=== PATIENT | female | born 1995 | race Caucasian/White ===

== ENCOUNTER 2023-10-14 09:37 | Inpatient (IN) | payer SELFPAY ==
[2023-10-14] VITALS (12 sets, daily range): BP systolic 83–130; BP diastolic 54–87; PULSE 55–95; RESP 16–18; TEMP 36.1–36.7; O2SAT 95–98; BMI 43.6
[2023-10-14] MEDS: Lactated Ringers 1,000 ML 999 ML IV ×2 (10:15→13:30)
[2023-10-14 10:30] LABS: Absolute Lymphocyte Count 1.28 X10^3/uL (0.83-4.51); Absolute Neutrophil Count 5.9 X10^3/uL (2.0-7.7); Basophil# 0.05 X10^3/uL; Basophil% 0.6 % (0-1); Eosinophil# 0.11 X10^3/uL; Eosinophils% 1.4 % (0-5); Hemoglobin 11.5 g/dL (12.0-15.0); Lymphocyte # 1.28 X10^3/ul (0.83-4.51); Lymphocyte % 16.1 % (19-41); Mean Corp Hgb Conc 32.9 g/dL (32-36); Mean Corpuscular Hgb 29.5 pg (27.0-32.0); Mean Corpuscular Volume 89.7 fL (81-99); Mean Platelet Vol. 11.8 fl (6.2-12.0); Monocyte# 0.64 X10^3/uL; NRBC Flagged by Analyzer 0 % (0-5); Neutrophil # 5.86 X10^3/uL (2.7-7.7); Neutrophil % 73.5 % (47-70); Platelet Count 226 K/mm3 (150-450); RBC Distribution Width CV 13.1 % (11.6-14.6); RBC Distribution Width SD 42.5 fl (35.1-43.9)
[2023-10-14] MEDS: Acetaminophen 500 MG Tablet 1000 MG PO ×2 (10:30→18:39)
[2023-10-14] MEDS: Sodium Citrate/Citric Acid 30 ML UDC PO (10:37)
[2023-10-14 11:04] LABS: Syphilis Antibodies Non-reactive
[2023-10-14] MEDS: Lactated Ringers 1,000 ML 150 ML IV (11:41)
[2023-10-14] MEDS: Cefazolin 3 GM in 0.9% Normal Saline (100mL Bag) 100 ML IV (11:55)
--- NOTE | 2023-10-14 12:10 | PCM.HP.OB ---
HPI - General General Date of Admission: 10/14/23 Date of Service: 10/14/23 HPI Narrative MINI BENDER, is a 28 F who presents for repeat . Maternal Data Information Final ARACELY: 10/21/23 Gestational age: 39 weeks PFSH PFSH Medical History no medical history Home Medications ?Medication ?Instructions ?Recorded ?Last Taken ?Type NK 10/14/23 Unknown History Allergy/AdvReac Type Severity Reaction Status Date / Time No Known Allergies Allergy Verified 10/14/23 09:38 Family History no significant family his Surgical History Previous section Social History Smoking Status: Never smoker History Elective abortions Hx Para 3 Spontaneous abortions Hx # Term Pregnancies Ectopic pregnancies Hx # Pregnancies Multiple births # of living children Vital Signs Vital Signs Vital Signs: 10/14/23 10:45 Temperature 97.0 F L Temperature Source Temporal Pulse Rate 95 Respiratory Rate 16 Blood Pressure 130/84 H Blood Pressure Mean 99 Blood Pressure Source Monitor Blood Pressure Position Semi-Fowlers Blood Pressure Location Right Arm Pulse Ox 97 Oxygen Delivery Method Room Air Weight Weight: 287 lb Body Mass Index (BMI) 43.6 Physical Exam Const alert and oriented x3 Chest inspection of chest normal GI soft to palpation, non-tender and non-distended Inspection: gravid Labs Labs Labs: Blood Type O POSITIVE Antibody Screen NEGATIVE Hct 35.0 % (37-47) L Hgb 11.5 g/dL (12.0-15.0) L Syphilis Total Ab Non-reactive Assessment & Plan (1) Previous section: PLAN: Plan Admit to L&D MOD - proceed with repeat . R/B/A reviewed and informed consent signed. Routine care
--- NOTE | 2023-10-14 12:57 | EX.PCM.OBRPT ---
Maternal Data Information Final ARACELY: 10/21/23 Gestational age: 39 weeks Details Operative Information Date of Procedure: 10/14/23 Pre-Operative Diagnosis: (1) Prior section Post-Operative Diagnosis: Same Indications for : Repeat Elective Indications Narrative: The patient was taken to the operating room where spinal anesthesia was placed & found to be adequate. She was prepped and draped in the dorsal supine position with a leftward tilt. A Pfannenstiel skin incision was made approximately 2 cm above the symphysis pubis and carried through to the underlying fascia with the scalpel. The fascia was incised incised in the midline and extended laterally with the Nelson scissors. The rectus muscles were scarred o the underlying peritoneum. The rectus muscles were carefully incised using the bovie and then blunt dissection. Rectus muscle edges were cauterized for excellent hemostasis. The peritoneal incision was stretched and the bladder blade was inserted. Vesicouterine peritoneum was tented up, incised & then bladder flap created gently. The uterine incision was made in a low transverse fashion with the scalpel and extended superiorly and inferiorly with blunt dissection. The infant's head was brought to the incision in the flexed position and delivered without difficulty. The head was gently guided to allow delivery of the anterior and posterior shoulders. The body then delivered with fundal pressure in the standard fashion. The 3VC cord was clamped and cut in delayed fashion. The infant was handed off to the waiting behavioral pediatrician. The placenta was delivered with fundal massage and gentle traction in the standard fashion. The uterus was exteriorized and cleared of clots and debris. The uterine incision was closed with #1 Vicryl suture in a running locked fashion. Monocryl suture was used in an imbricating fashion. The incision was examined and was found to be hemostatic. The uterus was returned to the abdominal cavity. After irrigating Liza was placed over the uterine incision as some areas were denuded (but hemostatic). The rectus muscle was examined and any bleeding was Bovie cauterized. The fascia was closed with PDS suture in a running standard fashion. The subcutaneous tissue was examining and any bleeding was Bovie cauterized. The subcutaneous tissue was reapproximated with interrupted sutures. The skin was closed in a subcuticular fashion by the PORTFOLIO ARCHITECT while I was present in the labor & delivery unit. The remainder of the procedure was performed by me with assistance. All sponge, lap, and needle counts were correct. The patient was taken to her room for recovery in a stable condition. Classification: Scheduled Procedure Type: low transverse commercial housekeeper #1: Lizz Grey Type of Anesthesia: Spinal Antibiotic Given: Ancef 3 grams IV x1 Drain: Sousa to straight drain Estimated Blood Loss: 700ml Fluids Replaced: 1000ml Procedure Start Time: 12:24 Procedure Stop Time: 13:09 Findings Description of Procedure: Normal maternal uterus and adnexa Presentation: Positive for Vertex Amniotic Membrane Rupture Type: Artificial Amniotic Fluid Description: Clear Placenta Disposition: [facility] Cord Vessel Description: 3 Vessels Cord Entanglement: None Infant A Gender: Male (weight = 8-14) (1 minute): 8 (5 minute): 9 Delayed Cord Clamping: Yes Complications Complications: none
--- NOTE | 2023-10-14 13:28 | NURSING ---
fluid bolus initiated for hypotension. Pt asymptomatic
[2023-10-14] MEDS: Oxytocin 15 Units/NS 250ml 15 UNITS/250 ML IV.SOLN 83 UNITS IV (13:30)
[2023-10-14] MEDS: Ketorolac 30 MG/ML Syringe IV ×2 (14:14→20:10)
[2023-10-14] MEDS: HYDROmorphone 1 MG/ML Syringe IV (14:19)
[2023-10-14] MEDS: 0.9% Saline Lock 10 ML Syringe IV (20:10)
[2023-10-15] MEDS: Acetaminophen 500 MG Tablet 1000 MG PO ×3 (00:16→11:05)
[2023-10-15] MEDS: Enoxaparin 40 MG/0.4 ML Syringe SC ×2 (00:16→13:53)
[2023-10-15 00:18] VITALS: BP 114/74; PULSE 69; RESP 16; TEMP 36.4; O2SAT 96
[2023-10-15] MEDS: 0.9% Saline Lock 10 ML Syringe IV ×3 (02:21→07:51)
[2023-10-15] MEDS: Ketorolac 30 MG/ML Syringe IV ×2 (02:21→07:51)
[2023-10-15 04:00] VITALS: BP 122/69; PULSE 72; RESP 16; TEMP 36.2; O2SAT 95
[2023-10-15 06:16] LABS: Hematocrit 31.6 % (37-47); Hemoglobin 10.2 g/dL (12.0-15.0); Mean Corp Hgb Conc 32.3 g/dL (32-36); Mean Corpuscular Volume 89.8 fL (81-99); Mean Platelet Vol. 11.5 fl (6.2-12.0); Platelet Count 191 K/mm3 (150-450); RBC Distribution Width SD 41.8 fl (35.1-43.9); Red Blood Count 3.52 M/mm3 (4.2-5.4); White Blood Count 11.7 K/mm3 (4.4-11.0)
[2023-10-15 09:01] VITALS: BP 120/73; PULSE 55; RESP 16; TEMP 36.1; O2SAT 99
[2023-10-15] MEDS: Senna/Docusate Sodium 1 Tablet PO (11:05)
--- NOTE | 2023-10-15 11:26 | PCM.PN.OB ---
Subjective Subjective Denies complaints Objective Data Objective Data Vital Signs: Vital Signs Temp Pulse Resp BP Pulse Ox O2 Del Method 97 F L 55 L 16 120/73 99 Room Air 10/15/23 09:01 10/15/23 09:01 10/15/23 09:01 10/15/23 09:01 10/15/23 09:01 10/15/23 09:01 Oxygen Delivery Method Room Air Weight: 287 lb Body Mass Index (BMI) 43.6 Intake & Output: Intake and Output for Last 24 Hours 10/13/23 10/14/23 10/15/23 23:59 23:59 23:59 Intake Total 3043.67 / 3043.67 Output Total 1500 / 1500 400 / 400 Balance 1543.67 / 1543.67 -400 / -400 Lab / Micro Data 10/15/23 06:08 Labs: Laboratory Results - last 24 hr 10/14/23 10:15: Blood Type O POSITIVE, Antibody Screen NEGATIVE 10/15/23 06:08: WBC 11.7 H, RBC 3.52 L, Hgb 10.2 L, Hct 31.6 L, MCV 89.8, MCH 29.0, MCHC 32.3, RDW Std Deviation 41.8, RDW Coeff of Michael 13.0, Plt Count 191, MPV 11.5 Physical Exam Const alert, oriented x3 and no apparent distress HEENT normocephalic GI soft to palpation, non-tender and non-distended GI Narrative: fundus firm, mid & below umbilicus Incision - bandage c/d/i Extremity normal to inspection and no calf tenderness Assessment & Plan (1) Previous section: COMMENT: POD#1 PLAN: Heme - HDS, CBC reviewed /GI - no issues D/c home per patient request
--- NOTE | 2023-10-15 11:27 | PCM.DC.SUM ---
Providers Date of Admission: 10/14/23 Primary Care Physician: Dr. Antoine Olmstead MD Reason For Visit: REPEAT Diagnosis Discharge Diagnosis (1) Previous section: Status: Acute Code(s): Z98.891 - History of uterine scar from previous surgery Plan: Heme - HDS, CBC reviewed /GI - no issues D/c home per patient request Medications at Discharge Home Medications acetaminophen 500 mg tablet 1,000 mg (2 x 500 mg) PO Q6H #0 tabs 10/15/23 ibuprofen 600 mg tablet 600 mg PO Q6H #0 tabs 10/15/23 oxycodone 5 mg tablet 5 mg PO Q8H PRN pain 2 days #6 tabs 10/15/23 Hospital Course Operations section Procedures None Summary of Care Provided Minutes Spent on Discharge: 15 Weight / BMI Weight Weight: 287 lb Body Mass Index (BMI) 43.6 ABG / Lab / Microbiology Data 10/15/23 06:08 Laboratory: Laboratory Results - last 24 hr 10/14/23 10:15: Blood Type O POSITIVE, Antibody Screen NEGATIVE 10/15/23 06:08: WBC 11.7 H, RBC 3.52 L, Hgb 10.2 L, Hct 31.6 L, MCV 89.8, MCH 29.0, MCHC 32.3, RDW Std Deviation 41.8, RDW Coeff of Michael 13.0, Plt Count 191, MPV 11.5 D/C Instructions Discharge Diet: No restrictions Discharge Activity: May Shower May resume sexual activity in: 6 weeks Weight Bearing Status: Weight bearing as tolerated Call your doctor if your incision/area has: Continuous Slow Oozing, Sudden Increased Bleeding, Increased Pain/ Swelling, Increased Redness, Foul Smelling Discharge and Swelling at the incision site Call your doctor if you observe: Fever of 101 or Higher, Coldness, Increased Pain, Change in Color, Inability to urinate, Inability to have a bowel movement, Using more than 1 pad per hour, Shortness of breath, Dizziness, Fainting spells, Chest pain, Increased palpitations (irregular heartbeat), Calf discomfort and Uncontrolled pain Suture Line Care: Avoid Pulling/Pushing and Avoid Pinching/Bending Remove Dressing in: 1 week Cleanse incision/area with: Soap & Water Please Follow Up With: Robert Xiong MD When: Follow up in 2 and 6 weeks for visits. Meaningful Use Info Meaningful Use Meaningful Use Diagnoses (Choose all that apply): None applicable Ischemic Stroke Statin Dosing Therapy Reference: STATIN DOSE THERAPY REFERENCE: * Patients > 75 years receive moderate or high dose statin therapy. * Patients 75 years or YOUNGER should receive HIGH intensity statin dose unless contraindicated. You will be required to document reason for non-treatment if statin daily dose does not meet guidelines. HIGH DOSE STATIN THERAPY DAILY Atorvastatin > than or = to 40 mg Rosuvastatin > than or = to 20 mg Amlodipine + Atorvastatin > than or = to 2.5/40 mg Ezetimibe + Simvastatin 10/80 mg Simvastatin 80mg Discharge Plan Admission Admit Date/Time: 10/14/23 09:37 Primary Reason for Your Visit: section Attending Provider: Robert Xiong Primary Care Provider: Antoine Olmstead Discharge Orders/Prescriptions Prescriptions: New acetaminophen 500 mg Tablet 1,000 mg PO Q6H Qty: 0 0RF ibuprofen 600 mg Tablet 600 mg PO Q6H Qty: 0 0RF oxycodone 5 mg tablet 5 mg PO Q8H PRN (Reason: pain) 2 Days Qty: 6 0RF Referrals / Follow Up: Antoine Olmstead MD [Primary Care Provider] - Disposition Disposition (needs filled in before D/C Order can be placed): Home, Self Care
[2023-10-15 11:43] VITALS: BP 120/72; PULSE 67; RESP 15; TEMP 36.4
[2023-10-15] MEDS: Ibuprofen 600 MG Tablet PO (13:53)
== END 2023-10-15 15:15 | disposition home or self-care (01) | DRG 788 ==
PROVIDERS: Admitting Provider Obstetrics & Gynecology; PCP Family Medicine; Referring Provider Obstetrics & Gynecology; Visit Provider Obstetrics & Gynecology
PROC: 10D00Z1 Extraction of Products of Conception, Low, Open Approach (ICD-10-PCS; CPT 59514; principal; 2023-10-14 11:45)
DX: O34.219 Maternal care for unspecified type scar from previous cesarean delivery (principal); O26.23 Pregnancy care for patient with recurrent pregnancy loss, third trimester; Z37.0 Single live birth; Z3A.39 39 weeks gestation of pregnancy
CPT/HCPCS: 59025; 59050; 85025; 85027; 86780; 86850; 86900; 86901; 99221; J7120; A4216; G0378; J2405